=== PATIENT | female | born 1995 | race Caucasian/White ===

== ENCOUNTER 2021-03-24 19:27 | Emergency (ER) | payer SELFPAY ==
[~2021-03-24] VITALS: Ht 160 cm; Wt 64.0 kg
[2021-03-24 20:22] VITALS: BP 104/68
== END 2021-03-24 21:40 | disposition left against medical advice (07) ==
LOC: ER 19:27
DX: R68.89 Other general symptoms and signs (principal); Z53.21 Procedure and treatment not carried out due to patient leaving prior to being seen by health care provider